=== PATIENT | male | born 1955 | race Caucasian/White ===

== ENCOUNTER 2021-08-26 12:37 | Emergency (ER) | payer OTHER | END 2021-08-26 13:35 | disposition home or self-care (01) | LOC: NAV ERS 12:37 | DX: S93.402A Sprain of unspecified ligament of left ankle, initial encounter (principal); I10 Essential (primary) hypertension; I25.2 Old myocardial infarction; Z79.899 Other long term (current) drug therapy; Z79.82 Long term (current) use of aspirin; X50.9XXA Other and unspecified overexertion or strenuous movements or postures, initial encounter ==